=== PATIENT | male | born 1945 | race Caucasian/White ===

== ENCOUNTER 2017-05-21 16:43 | Inpatient (IN) | payer OTHER ==
--- NOTE | 2017-05-21 16:52 | PDOC ---
Rapid Medical Evaluation Time Seen by Provider: 05/21/17 16:44 Medical Evaluation: 05/21/17 16:49 I have performed a brief in-person evaluation of this patient. This patient presents with a chief complaint of: insomnia, tremors and headache. States started namenda x 2 weeks ' and is also taking risperdone. Patient is hard of hearing Pertinent physical exam findings: NAD unlabored breathing lungs clear bilaterally heart s1s2 neuro: hard of hearing but follows simple commands I have ordered the following: labs This patient will proceed to the ED for further evaluation 05/21/17 21:24 Discharge Disposition - Referrals Referrals: STAFF,NOT ON [Primary Care Provider] - - Patient Instructions - Post Discharge Activity
[2017-05-21 17:07] LABS: BASO % 0.5 % (0-2.0); EOS % 3.5 % (0-4.5); MCHC 33.9 g/dl (32.0-35.9); MEAN CELL VOLUME 91.4 fl (80-96); MEAN PLT VOLUME 7.4 fl (7.5-11.1); NEUT % 43.5 % (42.8-82.8); PLATELET COUNT 199 K/MM3 (134-434); RDW 13.5 % (11.9-15.9); WHITE BLOOD COUNT 5.1 K/mm3 (4.0-10.0)
[2017-05-21 17:19] LABS: INR 1.05 (0.82-1.09); PROTHROMBIN TIME (PATIENT) 11.9 SEC (9.98-11.88)
[2017-05-21 17:21] LABS: ACTIVATED PTT 32.5 SECONDS (26.9-34.4)
[2017-05-21 17:45] LABS: ALBUMIN 3.7 g/dl (3.4-5.0); ANION GAP 8 (8-16); CALCIUM 8.4 mg/dL (8.5-10.1); CO2 27 mmol/L (21-32); CREATININE 0.9 mg/dL (0.7-1.3); GLUCOSE,RANDOM 134 mg/dL (74-106); SGOT/AST 20 U/L (15-37); SGPT/ALT 29 U/L (12-78)
[2017-05-21 17:47] LABS: ALK PHOS 62 U/L (45-117); BILIRUBIN,TOTAL 0.5 mg/dL (0.2-1.0); TOT PROT 7.2 g/dl (6.4-8.2)
--- NOTE | 2017-05-21 19:42 | PDOC ---
History of Present Illness - General Chief Complaint: Tremors Stated Complaint: HEAD PAIN/TREMORS/NOT SLEEPING Time Seen by Provider: 05/21/17 16:44 - History of Present Illness Initial Comments: 05/21/17 19:41 CHIEF COMPLAINT: tremor, insomnia HISTORY OF PRESENT ILLNESS: 71 yo M with hx of anxiety, HTN, Parkinson's presents to ED with headache, tremors, and insomnia. Patient's sons are at bedside and state that the patient recently came from [place] and had his medications changed by a new PCP. Patient was previously taking risperidone, memantine, bromazepam, and atenolol, but per sons the doctor discontinued the bromazepam and atenolol. Patient complains of headache "like a swelling" to the back of his head, and sons report that patient is "seeing things that aren' t there." Family reports that other than the visual hallucinations, patient has been acting normally and speaking normally. At baseline patient does not walk "due to knee problems, he uses crutches and has a wheelchair" per family. PAST MEDICAL HISTORY: as per HPI FAMILY HISTORY: Denies SOCIAL HISTORY: Denies tobacco, alcohol, illicit drug use. SURGICAL HISTORY: Denies ALLERGIES: No known drug allergies REVIEW OF SYSTEMS General/Constitutional: Denies fever or chills. Denies weakness. HEENT: Denies ear pain or discharge. Denies sore throat. Cardiovascular: Denies chest pain or shortness of breath. Respiratory: Denies cough, wheezing, or hemoptysis. Gastrointestinal: Denies nausea, vomiting, diarrhea. Genitourinary: Denies dysuria, frequency, or change in urination. Musculoskeletal: Denies joint or muscle swelling or pain. Denies neck or back pain. Skin and breasts: Denies rash or easy bruising. Neurologic: Headache. Denies vertigo, loss of consciousness, or loss of sensation. Psychiatric: Visual hallucinations, no auditory hallucinations. History of anxiety and insomnia. PHYSICAL EXAM General Appearance: Well-appearing, appropriately dressed. No apparent distress. HEENT: EOMI, PERRLA. No conjunctival pallor. No photophobia, scleral icterus. Respiratory/Chest: Lungs CTAB. No shortness of breath, chest tenderness, respiratory distress, accessory muscle use. No crackles, rales, rhonchi, stridor , wheezing, dullness Cardiovascular: RRR. S1, S2. Vascular Pulses: Dorsalis-Pedis (R): 2+, Dorsalis-Pedis (L): 2+ Gastrointestinal/Abdominal: Normal bowel sounds. Abdomen soft, non-distended. No tenderness or rebound tenderness. No organomegaly, pulsatile mass, guarding , hernia, hepatomegaly, splenomegaly. Musculoskeletal/Extremities: Normal inspection. FROM of all extremities, normal capillary refill. Pelvis Stable. No CVA tenderness. No tenderness to extremities, pedal edema, swelling, erythema or deformity. Integumentary: Appropriate color, dry, warm. No cyanosis, erythema, jaundice or rash Neurologic: cuff setter lockstitch II-XII intact. Fully oriented, alert. Appropriate mood/affect. Motor strength 5/5. No appreciable EOM palsy, facial droop or sensory deficit. Past History - Past Medical History Allergies/Adverse Reactions: Allergies Allergy/AdvReac Type Severity Reaction Status Date / Time No Known Allergies Allergy Verified 05/21/17 16:51 Home Medications: Ambulatory Orders Memantine HCl 10 mg PO BID 05/21/17 Risperidone 1 mg PO BID 05/21/17 Cardiac Disorders: Yes (low heart rate) CVA: No COPD: No DVT: No Other medical history: Alzheimers dis - Surgical History Abdominal Surgery: Yes (hernia repair) - Suicide/Smoking/Psychosocial Hx Smoking History: Never smoked Information on smoking cessation initiated: No Hx Alcohol Use: No Drug/Substance Use Hx: No Substance Use Type: None *Physical Exam - Vital Signs Last Vital Signs Temp Pulse Resp BP Pulse Ox 97.4 F L 58 L 18 151/77 95 05/21/17 16:47 05/21/17 16:47 05/21/17 16:47 05/21/17 16:47 05/21/17 16:47 ED Treatment Course - LABORATORY CBC & Chemistry Diagram: 05/21/17 17:00 05/21/17 17:00 - ADDITIONAL ORDERS Additional order review: Laboratory Results 05/21/17 05/21/17 17:00 17:00 PT with INR 11.90 H INR 1.05 PTT (Actin FS) 32.5 Sodium 141 Potassium 3.7 Chloride 106 Carbon Dioxide 27 Anion Gap 8 BUN 11 Creatinine 0.9 Creat Clearance w eGFR > 60 Random Glucose 134 H Calcium 8.4 L Total Bilirubin 0.5 AST 20 ALT 29 Alkaline Phosphatase 62 Total Protein 7.2 Albumin 3.7 05/21/17 17:00 RBC 4.84 MCV 91.4 MCHC 33.9 RDW 13.5 MPV 7.4 L Neutrophils % 43.5 Lymphocytes % 41.3 H Monocytes % 11.2 H Eosinophils % 3.5 Basophils % 0.5 Medical Decision Making - Medical Decision Making 05/21/17 20:08 71 yo M with hx of anxiety, HTN, Parkinson's presents to ED with headache, tremors, and insomnia s/p discontinuation of bromazepam. Discussed case with ER attending Jayjay . Will admit for observation overnight for withdrawal symptoms. -Valium 5 mg -EKG 05/21/17 20:25 Discussed case with attending hospitalist MD Sahu, will order head CT. *DC/Admit/Observation/Transfer Diagnosis at time of Disposition: Benzodiazepine withdrawal Qualifiers: Complication of substance-induced condition: with unspecified complication Qualified Code(s): F13.239 - Sedative, hypnotic or anxiolytic dependence with withdrawal, unspecified - Discharge Dispostion Admit: Yes - Referrals - Patient Instructions - Post Discharge Activity
[2017-05-21] MEDS ORDERED: diazePAM 5 MG TABLET PO ONE (20:09)
[2017-05-21] MEDS ORDERED: diazePAM 5 MG TABLET ONE (20:22)
[2017-05-21] MEDS ORDERED: MEMANTINE HCL 5 MG TABLET (UD) PO ONE (20:26)
[2017-05-21] MEDS ORDERED: risperiDONE 1 MG TABLET (FP) PO ONE (20:26)
[2017-05-21] MEDS ORDERED: risperiDONE 0.5 MG TABLET (FP) ONE (20:33)
--- NOTE | 2017-05-21 22:20 | PDOC ---
*Physical Exam - Vital Signs Last Vital Signs Temp Pulse Resp BP Pulse Ox 97.4 F L 58 L 18 151/77 95 05/21/17 16:47 05/21/17 16:47 05/21/17 16:47 05/21/17 16:47 05/21/17 16:47 ED Treatment Course - LABORATORY CBC & Chemistry Diagram: 05/21/17 17:00 05/21/17 17:00 - ADDITIONAL ORDERS Additional order review: Laboratory Results 05/21/17 05/21/17 17:00 17:00 PT with INR 11.90 H INR 1.05 PTT (Actin FS) 32.5 Sodium 141 Potassium 3.7 Chloride 106 Carbon Dioxide 27 Anion Gap 8 BUN 11 Creatinine 0.9 Creat Clearance w eGFR > 60 Random Glucose 134 H Calcium 8.4 L Total Bilirubin 0.5 AST 20 ALT 29 Alkaline Phosphatase 62 Total Protein 7.2 Albumin 3.7 05/21/17 17:00 RBC 4.84 MCV 91.4 MCHC 33.9 RDW 13.5 MPV 7.4 L Neutrophils % 43.5 Lymphocytes % 41.3 H Monocytes % 11.2 H Eosinophils % 3.5 Basophils % 0.5 - Medications Given in the ED: ED Medications Discontinued Medications Generic Name Dose Route Start Last Admin Trade Name Emanuelq PRN Reason Stop Dose Admin Diazepam 5 mg 05/21/17 20:09 05/21/17 20:32 Valium - PO 05/21/17 20:10 5 mg ONCE ONE Administration Memantine 10 mg 05/21/17 20:26 05/21/17 20:46 Namenda - PO 05/21/17 20:27 10 mg ONCE ONE Administration Risperidone 1 mg 05/21/17 20:26 05/21/17 20:46 Risperdal - PO 05/21/17 20:27 1 mg ONCE ONE Administration Medical Decision Making - Medical Decision Making 05/21/17 22:20 I independently examined and evaluated this patient in conjunction with Rhoda mid-level practitioner. I reviewed the case and agree with the mid-level practitioner's assessment, diagnosis and disposition. *DC/Admit/Observation/Transfer Diagnosis at time of Disposition: Benzodiazepine withdrawal - Referrals - Patient Instructions - Post Discharge Activity
[2017-05-22 03:05] VITALS: BMI 31.5
[2017-05-22 05:56] VITALS: PULSE 56
[2017-05-22] MEDS ORDERED: ACETAMINOPHEN 325 MG TABLET (FP) PO PRN (06:04)
[2017-05-22 06:55] LABS: URINE MARIJUANA THC NEGATIVE ng/ml (CUTOFF=50)
[2017-05-22 09:29] VITALS: BP 142/79; TEMP 97.8
[2017-05-22] MEDS ORDERED: PT OWN MED DRAWER 7, Y5N ONE (09:55)
[2017-05-22] MEDS ORDERED: MEMANTINE HCL 10 MG TABLET (FP) PO SCH (10:00)
[2017-05-22] MEDS ORDERED: risperiDONE 1 MG TABLET (FP) PO SCH (10:00)
[2017-05-22] MEDS ORDERED: PNEUMOC 13-VAL CONJ-DIP CRM/PF 0.5 ML DISP.SYRIN IM ONE (10:00)
--- NOTE | 2017-05-22 10:12 | CONSULT ---
Consult - text type - Consultation Consultation Note: Neurology History of Present Illness CHIEF COMPLAINT: tremor, insomnia HISTORY OF PRESENT ILLNESS: 71 yo M with hx of anxiety, HTN, Parkinson's presents to ED with headache, tremors, and insomnia. Patient's sons were at bedside and stated that the patient recently came from [place] and had his medications changed by a new PCP. Patient was previously taking risperidone, memantine, bromazepam, and atenolol, but per sons the doctor discontinued the bromazepam and atenolol. Patient complains of headache "like a swelling" to the back of his head, and sons report that patient is "seeing things that aren' t there." Family reports that other than the visual hallucinations, patient has been acting normally and speaking normally. In speaking with the patient he is able to tell me that he's in the hospital as well as the date. He is alert and interactive and appears to be at baseline. CT head completed and reviewed and did not show acute changes. PAST MEDICAL HISTORY: as per HPI FAMILY HISTORY: Denies SOCIAL HISTORY: Denies tobacco, alcohol, illicit drug use. SURGICAL HISTORY: Denies ALLERGIES: No known drug allergies REVIEW OF SYSTEMS General/Constitutional: Denies fever or chills. Denies weakness. HEENT: Denies ear pain or discharge. Denies sore throat. Cardiovascular: Denies chest pain or shortness of breath. Respiratory: Denies cough, wheezing, or hemoptysis. Gastrointestinal: Denies nausea, vomiting, diarrhea. Genitourinary: Denies dysuria, frequency, or change in urination. Musculoskeletal: Denies joint or muscle swelling or pain. Denies neck or back pain. Skin and breasts: Denies rash or easy bruising. Neurologic: Headache. Denies vertigo, loss of consciousness, or loss of sensation. Psychiatric: Visual hallucinations, no auditory hallucinations. History of anxiety and insomnia. Past History - Past Medical History Allergies/Adverse Reactions: Allergies Allergy/AdvReac Type Severity Reaction Status Date / Time No Known Allergies Allergy Verified 05/21/17 16:51 Home Medications: Ambulatory Orders Memantine HCl 10 mg PO BID 05/21/17 Risperidone 1 mg PO BID 05/21/17 Cardiac Disorders: Yes (low heart rate) CVA: No COPD: No DVT: No Other medical history: Alzheimers dis - Surgical History Abdominal Surgery: Yes (hernia repair) - Suicide/Smoking/Psychosocial Hx Smoking History: Never smoked Information on smoking cessation initiated: No Hx Alcohol Use: No Drug/Substance Use Hx: No Substance Use Type: None *Physical Exam Vital Signs Temperature 97.8 F 05/22/17 09:28 Pulse Rate 56 L 05/22/17 09:28 Respiratory Rate 18 05/22/17 09:28 Blood Pressure 142/79 05/22/17 09:28 O2 Sat by Pulse Oximetry (%) 96 05/22/17 02:19 PHYSICAL EXAM General Appearance: Well-appearing, appropriately dressed. No apparent distress. HEENT: EOMI, PERRLA. No conjunctival pallor. No photophobia, scleral icterus. Respiratory/Chest: Lungs CTAB. No shortness of breath, chest tenderness, respiratory distress, accessory muscle use. No crackles, rales, rhonchi, stridor , wheezing, dullness Cardiovascular: RRR. S1, S2. Vascular Pulses: Dorsalis-Pedis (R): 2+, Dorsalis-Pedis (L): 2+ Gastrointestinal/Abdominal: Normal bowel sounds. Abdomen soft, non-distended. No tenderness or rebound tenderness. No organomegaly, pulsatile mass, guarding , hernia, hepatomegaly, splenomegaly. Musculoskeletal/Extremities: Normal inspection. FROM of all extremities, normal capillary refill. Pelvis Stable. No CVA tenderness. No tenderness to extremities, pedal edema, swelling, erythema or deformity. Integumentary: Appropriate color, dry, warm. No cyanosis, erythema, jaundice or rash Neurologic: macroeconomics professor II-XII intact. Fully oriented, alert. Appropriate mood/affect. Motor strength 5/5. No appreciable EOM palsy, facial droop or sensory deficit. Laboratory Results 05/21/17 05/21/17 17:00 17:00 PT with INR 11.90 H INR 1.05 PTT (Actin FS) 32.5 Sodium 141 Potassium 3.7 Chloride 106 Carbon Dioxide 27 Anion Gap 8 BUN 11 Creatinine 0.9 Creat Clearance w eGFR > 60 Random Glucose 134 H Calcium 8.4 L Total Bilirubin 0.5 AST 20 ALT 29 Alkaline Phosphatase 62 Total Protein 7.2 Albumin 3.7 05/21/17 17:00 RBC 4.84 MCV 91.4 MCHC 33.9 RDW 13.5 MPV 7.4 L Neutrophils % 43.5 Lymphocytes % 41.3 H Monocytes % 11.2 H Eosinophils % 3.5 Basophils % 0.5 CT head reviewed Medical Decision Making 71 yo M with hx of anxiety, HTN, Parkinson's presents to ED with headache, tremors, and insomnia. Patient's sons were at bedside and stated that the patient recently came from [place] and had his medications changed by a new PCP. Patient was previously taking risperidone, memantine, bromazepam, and atenolol , but per sons the doctor discontinued the bromazepam and atenolol. Patient complains of headache "like a swelling" to the back of his head, and sons report that patient is "seeing things that aren't there." Family reports that other than the visual hallucinations, patient has been acting normally and speaking normally. In speaking with the patient he is able to tell me that he's in the hospital as well as the date. He is alert and interactive and appears to be at baseline. CT head completed and reviewed and did not show acute changes. Consider psych consult for anxiety and for hallucinations Can continue memantine as they find it helpful though does seem to have baseline mental status knowing person, place, time Can give tylenol for tension headache Monitor blood pressure, maintain < 140/90 Can continue atenolol Maintain hydration and adequate PO intake
--- NOTE | 2017-05-22 14:13 | HP ---
Admitting History and Physical - Primary Care Physician PCP: Srinivas Nash - Admission Chief Complaint: BENZODIAZAPINE WITHDRAWEL History of Present Illness: 71 yo M with hx of anxiety, HTN, Parkinson's presents to ED with headache, tremors, and insomnia. Patient's sons are at bedside and state that the patient recently came from [place] and had his medications changed by a new PCP. Patient was previously taking risperidone, memantine, bromazepam, and atenolol , but per sons the doctor discontinued the bromazepam and atenolol. Patient complains of headache "like a swelling" to the back of his head, and sons report that patient is "seeing things that aren't there." Family reports that other than the visual hallucinations, patient has been acting normally and speaking normally. At baseline patient does not walk "due to knee problems, he uses crutches and has a wheelchair" per family. History Source: Medical Record Limitations to Obtaining History: Physical Impairment, Poor Historian - Smoking History Smoking history: Never smoked - Alcohol/Substance Use Hx Alcohol Use: No Home Medications - Allergies Allergies/Adverse Reactions: Allergies Allergy/AdvReac Type Severity Reaction Status Date / Time No Known Allergies Allergy Verified 05/21/17 16:51 - Home Medications Home Medications: Ambulatory Orders Memantine HCl 10 mg PO BID 05/21/17 Risperidone 1 mg PO BID 05/21/17 Review of Systems - Review of Systems Constitutional: reports: Weakness Eyes: reports: No Symptoms HENT: reports: No Symptoms Neck: reports: No Symptoms Cardiovascular: reports: No Symptoms Respiratory: reports: No Symptoms Gastrointestinal: reports: No Symptoms Genitourinary: reports: No Symptoms Musculoskeletal: reports: Muscle Weakness Integumentary: reports: No Symptoms Neurological: reports: Pre-Existing Deficit, Unsteady Gait, Weakness Endocrine: reports: No Symptoms Hematology/Lymphatic: reports: No Symptoms Psychiatric: reports: No Symptoms Physical Examination Vital Signs: Vital Signs Temperature 97.8 F 05/22/17 09:28 Pulse Rate 56 L 05/22/17 09:28 Respiratory Rate 18 05/22/17 09:28 Blood Pressure 142/79 05/22/17 09:28 O2 Sat by Pulse Oximetry (%) 96 05/22/17 02:19 Constitutional: Yes: No Distress Eyes: Yes: WNL HENT: Yes: WNL Neck: Yes: WNL Cardiovascular: Yes: WNL Respiratory: Yes: WNL Gastrointestinal: Yes: WNL Renal/: Yes: WNL Musculoskeletal: Yes: Muscle Weakness Extremities: Yes: WNL Edema: No Peripheral Pulses WNL: Yes Integumentary: Yes: WNL Wound/Incision: Yes: Clean/Dry Neurological: Yes: Pre-Existing Deficit, Unsteady Gait, Weakness ...Motor Strength: LLE, RLE Psychiatric: Yes: Other Labs: CBC, BMP 05/21/17 17:00 05/21/17 17:00 Imaging - Results Cat Scan: Report Reviewed Problem List - Problems (1) Parkinson disease Code(s): G20 - PARKINSON'S DISEASE (2) Benzodiazepine withdrawal Code(s): F13.239 - SEDATV/HYP/ANXIOLYTC DEPENDENCE W WITHDRAWAL, UNSP Qualifiers: Complication of substance-induced condition: with unspecified complication Qualified Code(s): F13.239 - Sedative, hypnotic or anxiolytic dependence with withdrawal, unspecified Assessment/Plan IVF NEUROLOGY EVAL PT EVAL F/U OUTPATINET DC PLANNING
--- NOTE | 2017-05-22 14:17 | DS ---
Physical Examination Vital Signs: Vital Signs Temperature 97.8 F 05/22/17 09:28 Pulse Rate 56 L 05/22/17 09:28 Respiratory Rate 18 05/22/17 09:28 Blood Pressure 142/79 05/22/17 09:28 O2 Sat by Pulse Oximetry (%) 96 05/22/17 02:19 Constitutional: Yes: No Distress Eyes: Yes: WNL HENT: Yes: WNL Neck: Yes: WNL Cardiovascular: Yes: WNL Respiratory: Yes: WNL Gastrointestinal: Yes: WNL Renal/: Yes: WNL Musculoskeletal: Yes: Muscle Weakness Extremities: Yes: WNL Edema: No Peripheral Pulses WNL: Yes Integumentary: Yes: WNL Wound/Incision: Yes: Clean/Dry Neurological: Yes: Pre-Existing Deficit ...Motor Strength: LLE, RLE Psychiatric: Yes: Other Labs: CBC, BMP 05/21/17 17:00 05/21/17 17:00 Discharge Summary Reason For Visit: BENZODIAZEPINE WITHDRAWAL Current Active Problems Benzodiazepine withdrawal (Acute) Parkinson disease (Acute) Procedures: Principal: CT HEAD Hospital Course: ADMITTED FOR OBSERVATION, TREATED WITH IVF, NEUROLOGY WORKUP, CAN F/U OUTPATIENT, WITHDRAWEL SYMPTOMS RESOLVED Condition: Fair - Instructions Diet, Activity, Other Instructions: LOW SODIUM DIET PT AND NEUROLOGY F/U OUTPATIENT SEE PMD IN 1-2 DAYS - Home Medications Comprehensive Discharge Medication List: Ambulatory Orders Memantine HCl 10 mg PO BID 05/21/17 Risperidone 1 mg PO BID 05/21/17 Acetaminophen [Tylenol .Regular Strength -] 650 mg PO Q6H PRN tablet 05/22/17 Memantine HCl [Namenda -] 10 mg PO BID #60 tablet 05/22/17 Risperidone [Risperdal -] 1 mg PO BID #60 tablet 05/22/17
--- NOTE | 2017-05-23 11:20 | EKG ---
Test Reason : Blood Pressure : / mmHG Vent. Rate : 054 BPM Atrial Rate : 054 BPM P-R Int : 158 ms QRS Dur : 096 ms QT Int : 456 ms P-R-T Axes : 032 001 035 degrees QTc Int : 432 ms SINUS BRADYCARDIA WITH PREMATURE ATRIAL COMPLEXES OTHERWISE NORMAL ECG NO PREVIOUS ECGS AVAILABLE Confirmed by EFRAÍN LAKE, SILVER ([id number]) on 05/23/2017 11:20:33 AM Referred By: Confirmed By:SILVER KENNY MD
== END 2017-05-22 15:08 | disposition home or self-care (01) | DRG 776 ==
LOC: JER 16:43 → JERBED 22:27 → J5S 05-22 02:15
PROVIDERS: ADMIT Family Medicine; ATTEND Family Medicine
DX: F13.230 Sedative, hypnotic or anxiolytic dependence with withdrawal, uncomplicated (principal); G20 Parkinson's disease; F41.9 Anxiety disorder, unspecified; I10 Essential (primary) hypertension; G47.00 Insomnia, unspecified
CPT/HCPCS: 36415; 70450-TC; 80053; 80307; 85025; 85610; 85730; 90670; 93005; 93010; 97116-GP; 97161-GP; 99283-25; J2794

== ENCOUNTER 2017-09-14 23:41 | Inpatient (IN) | payer OTHER ==
--- NOTE | 2017-09-15 00:43 | PDOC ---
History of Present Illness - General Chief Complaint: Cold Symptoms Stated Complaint: FEVER Time Seen by Provider: 09/15/17 00:42 - History of Present Illness Initial Comments: 09/15/17 00:42 Mr. Timmy Francisco is a 72 yo male w/ pmh of anxiety, HTN, and Parkinson's who presents for evaluation of an episode of shaking, palpitations, and shortness of breath. Per family who is with him he is usually ambulatory and can walk on his own but has been weak since this began. He had previously been in his normal state of health until this episode started suddenly at 4pm this evening. The patient denies chest pain, headache and dizziness. Denies fever, chills, nausea, vomit, diarrhea and constipation. Denies dysuria, frequency, urgency and hematuria. Allergies: NKDA Past History - Past Medical History Allergies/Adverse Reactions: Allergies Allergy/AdvReac Type Severity Reaction Status Date / Time No Known Allergies Allergy Verified 09/14/17 23:42 Home Medications: Ambulatory Orders Memantine HCl [Namenda -] 10 mg PO BID #60 tablet 05/22/17 Risperidone [Risperdal -] 1 mg PO BID #60 tablet 05/22/17 Cardiac Disorders: Yes (low heart rate) CVA: No COPD: No DVT: No Dementia: Yes HTN: Yes - Surgical History Abdominal Surgery: Yes (hernia repair) - Suicide/Smoking/Psychosocial Hx Smoking History: Never smoked Have you smoked in the past 12 months: No Information on smoking cessation initiated: No Hx Alcohol Use: No Drug/Substance Use Hx: No Substance Use Type: None Review of Systems - Review of Systems Comments:: 09/15/17 00:42 GENERAL/CONSTITUTIONAL: +Generalized weakness. No fever or chills. HEAD, EYES, EARS, NOSE AND THROAT: No change in vision. No ear pain or discharge. No sore throat. CARDIOVASCULAR: +Palpitations since 4pm. No chest pain or shortness of breath RESPIRATORY: +Reported "gasping for air" per family earlier today. No cough, wheezing, or hemoptysis. GASTROINTESTINAL: No nausea, vomiting, diarrhea or constipation. GENITOURINARY: No dysuria, frequency, or change in urination. MUSCULOSKELETAL: No joint or muscle swelling or pain. No neck or back pain. SKIN: No rash NEUROLOGIC: No headache, vertigo, loss of consciousness, or change in strength/ sensation. ENDOCRINE: No increased thirst. No abnormal weight change HEMATOLOGIC/LYMPHATIC: No anemia, easy bleeding, or history of blood clots. ALLERGIC/IMMUNOLOGIC: No hives or skin allergy. *Physical Exam - Vital Signs Last Vital Signs Temp Pulse Resp BP Pulse Ox 116 H 22 118/66 96 09/14/17 23:42 09/14/17 23:42 09/14/17 23:42 09/14/17 23:42 - Physical Exam Comments: 09/15/17 00:43 GENERAL: Awake, alert, and oriented to baseline, in no acute distress HEAD: No signs of trauma, normocephalic, atraumatic EYES: PERRLA, EOMI, sclera anicteric, conjunctiva clear ENT: Auricles normal inspection, hearing grossly normal, nares patent, oropharynx clear without exudates. Moist mucosa NECK: Normal ROM, supple, no lymphadenopathy, JVD, or masses LUNGS: No distress, speaks full sentences, clear to auscultation bilaterally HEART: Regular rate and rhythm, normal S1 and S2, no murmurs, rubs or gallops, peripheral pulses normal and equal bilaterally. ABDOMEN: Soft, nontender, normoactive bowel sounds. No guarding, no rebound. No masses EXTREMITIES: Normal inspection, Normal range of motion, no edema. No clubbing or cyanosis. NEUROLOGICAL: Cranial nerves II through XII grossly intact. Normal speech, normal gait, no focal sensorimotor deficits SKIN: Warm, Dry, normal turgor, no rashes or lesions noted. ED Treatment Course - LABORATORY CBC & Chemistry Diagram: 09/15/17 01:05 09/15/17 01:05 Medical Decision Making - Medical Decision Making 09/15/17 03:51 Mr. Warner is a 72 yo male w/ pmh as described who presents for evaluation of new onset SOB. CBC/CMP/Blood Cx/Urine Cx/UA/EKG/CXR sent for evaluation. 09/15/17 03:55 Patient noted to have Left lower lobe pneumonia on CXR. Treating with azithromycin and ceftriaxone. Admitting for sepsis in the setting of pneumonia. *DC/Admit/Observation/Transfer Diagnosis at time of Disposition: Sepsis Qualifiers: Sepsis type: sepsis due to unspecified organism Qualified Code(s): A41.9 - Sepsis, unspecified organism - Discharge Dispostion Admit: Yes - Referrals Referrals: Marcella Hanna [Primary Care Provider] - - Patient Instructions - Post Discharge Activity
[2017-09-15] MEDS ORDERED: SODIUM CHLORIDE 1,000 ML IV STA (01:10)
[2017-09-15] MEDS ORDERED: ACETAMINOPHEN 1000 MG/100 ML VIAL (NON FORMULARY) IVPB ONE (01:10)
--- NOTE | 2017-09-15 01:16 | PDOC ---
Attending Attestation - Resident Resident Name: Mikie Greene - ED Attending Attestation I have performed the following: I have examined & evaluated the patient, The case was reviewed & discussed with the resident, I agree w/resident's findings & plan, Exceptions are as noted - HPI HPI: 09/15/17 01:14 72 M with h/o dementia, HTN, anxiety presents to ED with fevers, chills, and rigors. Pt's family states that he began to feel feverish at around 4PM. They did not measure a temp but state he felt warm. He subsequently began to rigor and have chills. Pt denies cough, denies N/V/D/abdominal pain. Denies dysuria. Denies flank pain. - Physicial Exam PE: 09/15/17 01:15 "GENERAL: Awake, alert, and fully oriented, in no acute distress. HEAD: No signs of trauma EYES: PERRLA, EOMI, sclera anicteric, conjunctiva clear ENT: Auricles normal inspection, hearing grossly normal, nares patent, oropharynx clear without exudates. Moist mucosa NECK: Nontender, no stepoffs, Normal ROM, supple, no lymphadenopathy, JVD, or masses LUNGS: Breath sounds equal, clear to auscultation bilaterally. No wheezes, and no crackles HEART: Regular rate and rhythm, normal S1 and S2, no murmurs, rubs or gallops ABDOMEN: Soft, nontender, normoactive bowel sounds. No guarding, no rebound. No masses EXTREMITIES: Normal range of motion, no edema. No clubbing or cyanosis. No cords, erythema, or tenderness NEUROLOGICAL: Cranial nerves II through XII intact. 5/5 strength and sensation in all extremities, Normal speech, normal gait, normal cerebellar function SKIN: Warm, Dry, normal turgor, no rashes or lesions noted. " - Medical Decision Making 09/15/17 01:15 72 M with fevers, chills, rigors x 1 day. Vitals notable for fever and tachycardia. Pt with no focal signs of infectious process at this time. - Labs, cultures - CXR, UA - Flu swab - IVF, tylenol 09/15/17 03:57 Labs wnl. Prelim CXR read shows LLL PNA. Pt covered for CAP with ceftriaxone + azithro Will admit to obs
[2017-09-15] MEDS ORDERED: ACETAMINOPHEN INJECTION 100 ML IVPB ONE (01:17)
[2017-09-15 01:19] LABS: HEMATOCRIT 42.8 % (35.4-49); HEMOGLOBIN 14.6 GM/dL (11.7-16.9); MCH 30.5 pg (25.7-33.7); MCHC 34.1 g/dl (32.0-35.9); MEAN CELL VOLUME 89.4 fl (80-96); MEAN PLT VOLUME 7.3 fl (7.5-11.1); PLATELET COUNT 188 K/MM3 (134-434); RBC 4.79 M/mm3 (4.00-5.60); RDW 13.9 % (11.9-15.9); WHITE BLOOD COUNT 5.2 K/mm3 (4.0-10.0)
[2017-09-15 01:56] LABS: ALBUMIN 4.1 g/dl (3.4-5.0); ANION GAP 11 (8-16); BILIRUBIN,TOTAL 0.6 mg/dL (0.2-1.0); BLOOD UREA NITROGEN 12 mg/dL (7-18); CALCIUM 9.2 mg/dL (8.5-10.1); CHLORIDE 102 mmol/L (98-107); CO2 24 mmol/L (21-32); CREATININE 1.1 mg/dL (0.7-1.3); GLUCOSE,RANDOM 145 mg/dL (74-106); POTASSIUM 4.2 mmol/L (3.5-5.1); SGPT/ALT 46 U/L (12-78); SODIUM 137 mmol/L (136-145); TOT PROT 7.8 g/dl (6.4-8.2)
[2017-09-15 01:57] LABS: ALK PHOS 97 U/L (45-117); SGOT/AST 71 U/L (15-37)
[2017-09-15 03:14] LABS: ACANTHOCYTES 0; ANISOCYTOSIS 0; HELMET CELLS 0; HOWELL-JOLLY BODIES 0; MACROCYTOSIS 0; OVALOCYTE 0; PLATELET ESTIMATE NORMAL; ROULEAU 0; SICKELED CELLS 0; TARGET CELLS 0; TEAR DROP CELLS 0; TOXIC GRANULATION 0
[2017-09-15] MEDS ORDERED: CEFTRIAXONE 1,000 MG in DEXTROSE 5%-WATER - 50 ML IVPB ONE (03:46)
[2017-09-15] MEDS ORDERED: AZITHROMYCIN IVPB 500 MG in DEXTROSE 5%-WATER - 250 ML IVPB ONE (03:46)
[2017-09-15] MEDS ORDERED: CEFTRIAXONE 1 GM/50 ML BAG ONE (04:06)
[2017-09-15] MEDS ORDERED: AZITHROMYCIN IVPB 250 ML IVPB ONE (04:34)
--- NOTE | 2017-09-15 05:10 | HP ---
CHIEF COMPLAINT: Fever, Chills PCP: Dr. Marcella Hanna HISTORY OF PRESENT ILLNESS: This is a 72 y/o man with a PMH of Dementia, Parkinson's, Hypertension, Anxiety. Who presents to the ED with fever, chills, rigors x 4pm yesterday. Patient has Dementia, unable to obtain HPI. Patient's daughter was at bedside, sign painter apprentice used. The daughter reports the patient was shaking uncontrollably and he felt hot. The patient denies cough, dizziness, MAYS, SOB, CP, N/V/D, constipation, dysuria. ER course was notable for: (1) Sepsis criteria met: T 103, P 118, R 22 (2) Chest Xray image: KATIE Pneumonia (3) Recent Travel: None PAST MEDICAL HISTORY: See HPI PAST SURGICAL HISTORY: B/L knee replacements (06/2017) Social History: Smoking: Never Alcohol: None Drugs: None Lives with daughter Family History: Non-contributory Allergies No Known Allergies Allergy (Verified 09/14/17 23:42) HOME MEDICATIONS: Home Medications Medication Instructions Recorded Memantine HCl [Namenda -] 10 mg PO BID #60 tablet 05/22/17 Risperidone [Risperdal -] 1 mg PO BID #60 tablet 05/22/17 REVIEW OF SYSTEMS CONSTITUTIONAL: fever, chills, loss of appetite Absent: diaphoresis, generalized weakness, malaise, weight change HEENT: Absent: rhinorrhea, nasal congestion, throat pain, throat swelling, difficulty swallowing, mouth swelling, ear pain, eye pain, visual changes CARDIOVASCULAR: Absent: chest pain, syncope, palpitations, irregular heart rate, lightheadedness , peripheral edema RESPIRATORY: Absent: cough, shortness of breath, dyspnea with exertion, orthopnea, wheezing, stridor, hemoptysis GASTROINTESTINAL: Absent: abdominal pain, abdominal distension, nausea, vomiting, diarrhea, constipation, melena, hematochezia GENITOURINARY: Absent: dysuria, frequency, urgency, hesitancy, hematuria, flank pain, genital pain MUSCULOSKELETAL: Absent: myalgia, arthralgia, joint swelling, back pain, neck pain SKIN: Absent: rash, itching, pallor HEMATOLOGIC/IMMUNOLOGIC: Absent: easy bleeding, easy bruising, lymphadenopathy, frequent infections ENDOCRINE: Absent: unexplained weight gain, unexplained weight loss, heat intolerance, cold intolerance NEUROLOGIC: Absent: headache, focal weakness or paresthesias, dizziness, unsteady gait, seizure, mental status changes, bladder or bowel incontinence PSYCHIATRIC: Absent: anxiety, depression, suicidal or homicidal ideation, hallucinations. PHYSICAL EXAMINATION Vital Signs - 24 hr 09/14/17 09/15/17 23:42 01:23 Temperature 103.0 F H Pulse Rate 116 H Respiratory 22 Rate Blood Pressure 118/66 O2 Sat by Pulse 96 Oximetry (%) GENERAL: Awake- at baseline, in no acute distress. HEAD: Normal with no signs of trauma. EYES: Pupils equal, round and reactive to light, extraocular movements intact, sclera anicteric, conjunctiva clear. No lid lag. EARS, NOSE, THROAT: Ears normal, nares patent, oropharynx clear without exudates. Dry mucous membranes. NECK: Normal range of motion, supple without lymphadenopathy, JVD, or masses. LUNGS: Breath sounds diminished to L-base. No wheezes, and no crackles. No accessory muscle use. HEART: Regular rate and rhythm, normal S1 and S2 without murmur, rub or gallop. ABDOMEN: Soft, nontender, not distended, normoactive bowel sounds, no guarding, no rebound, no masses. No hepatomegaly or splenomegaly. MUSCULOSKELETAL: Normal range of motion at all joints. No bony deformities or tenderness. No CVA tenderness. UPPER EXTREMITIES: 2+ pulses, warm, well-perfused. No cyanosis. No clubbing. No peripheral edema. LOWER EXTREMITIES: 2+ pulses, warm, well-perfused. No calf tenderness. No peripheral edema. NEUROLOGICAL: Cranial nerves II-XII intact. Slowed speech. Gait not observed. PSYCHIATRIC: Cooperative. Good eye contact. Appropriate mood and affect. SKIN: Warm, dry, normal turgor, no rashes or lesions noted, normal capillary refill. Laboratory Results - last 24 hr 09/15/17 09/15/17 09/15/17 01:05 01:05 01:05 WBC 5.2 RBC 4.79 Hgb 14.6 Hct 42.8 MCV 89.4 MCH 30.5 MCHC 34.1 RDW 13.9 Plt Count 188 MPV 7.3 L Neutrophils % No Result Required. Neutrophils % (Manual) 68.7 Band Neutrophils % 4.0 Lymphocytes % No Result Required. Lymphocytes % (Manual) 10.1 Monocytes % (Manual) 10 Eosinophils % (Manual) 0.0 Basophils % (Manual) 1.0 Myelocytes % (Man) 0 Promyelocytes % (Man) 0 Blast Cells % (Manual) 0 Nucleated RBC % 0 Metamyelocytes 0 Hypochromia 0 Toxic Granulation 0 Dohle Bodies 0 Platelet Estimate Normal Polychromasia 0 Poikilocytosis 0 Basophilic Stippling 0 Anisocytosis 0 Microcytosis 0 Macrocytosis 0 Spherocytes 0 Sickle Cells 0 Target Cells 0 Tear Drop Cells 0 Ovalocytes 0 Stomatocytes 0 Helmet Cells 0 [place] Bodies 0 [place] Rings 0 [place] Cells 0 Acanthocytes (Spur) 0 Rouleaux 0 Fragmented RBCs 0 Schistocytes 0 D-Dimer 1962 H Sodium 137 Potassium 4.2 Chloride 102 Carbon Dioxide 24 Anion Gap 11 BUN 12 Creatinine 1.1 D Creat Clearance w eGFR > 60 Random Glucose 145 H Lactic Acid Calcium 9.2 Total Bilirubin 0.6 AST 71 H D ALT 46 D Alkaline Phosphatase 97 D Creatine Kinase Troponin I Total Protein 7.8 Albumin 4.1 09/15/17 09/15/17 01:05 04:30 WBC RBC Hgb Hct MCV MCH MCHC RDW Plt Count MPV Neutrophils % Neutrophils % (Manual) Band Neutrophils % Lymphocytes % Lymphocytes % (Manual) Monocytes % (Manual) Eosinophils % (Manual) Basophils % (Manual) Myelocytes % (Man) Promyelocytes % (Man) Blast Cells % (Manual) Nucleated RBC % Metamyelocytes Hypochromia Toxic Granulation Dohle Bodies Platelet Estimate Polychromasia Poikilocytosis Basophilic Stippling Anisocytosis Microcytosis Macrocytosis Spherocytes Sickle Cells Target Cells Tear Drop Cells Ovalocytes Stomatocytes Helmet Cells [place] Bodies [place] Rings Selina Cells Acanthocytes (Spur) Rouleaux Fragmented RBCs Schistocytes D-Dimer Sodium Potassium Chloride Carbon Dioxide Anion Gap BUN Creatinine Creat Clearance w eGFR Random Glucose Lactic Acid 1.6 Calcium Total Bilirubin AST ALT Alkaline Phosphatase Creatine Kinase 43 Troponin I < 0.02 Total Protein Albumin ASSESSMENT/PLAN: This is a 72 y/o man with a PMHx of: Dementia, Parkinson's, HTN, Anxiety. Placed in Observation for Sepsis secondary to Community Acquired Pneumonia. Plan: 1. Sepsis- Likely secondary to CAP, CURB65 Score 1, Chest Xray image- KATIE Infiltrate, report pending, Blood Cultures-pending, Urine Legionella, no Leukocytosis, no Neutrophilia, LA-wnl, Monitor CBC, Monitor vitals. Azithromycin , Ceftriaxone given in ED, will continue, Appreciate ID consult 2. Pneumonia- see above 3. Elevated D- dimer- Likely secondary to Sepsis vs Wells Score 1.5, PE less likely, P 118-72 post fluid bolus, Tylenol, would consider CTA if P remains 100s , or complaint SOB. currently patient denies SOB, P 72. 4. Hypertension- stable, continue home med, maintain MAP> 60, monitor BP 5. Parkinson's- continue home meds, fall precautions 6. Psych: Dementia, Anxiety- continue home meds, fall precautions 7. FEN- replete lytes prn, Low Na Diet 7. DVT ppx- SCDs, Consider ACs if LOS > 48 hrs Code Status: Full Code, HCP- Leila Vasquez (daughter) Problem List - Problem (1) Sepsis Code(s): A41.9 - SEPSIS, UNSPECIFIED ORGANISM Qualifiers: Sepsis type: sepsis due to unspecified organism Qualified Code(s): A41.9 - Sepsis, unspecified organism (2) Dementia Code(s): F03.90 - UNSPECIFIED DEMENTIA WITHOUT BEHAVIORAL DISTURBANCE (3) Parkinson disease Code(s): G20 - PARKINSON'S DISEASE (4) DVT prophylaxis Code(s): [id number] - Visit type - Emergency Visit Emergency Visit: Yes ED Registration Date: 09/15/17 Care time: The patient presented to the Emergency Department on the above date and was hospitalized for further evaluation of their emergent condition. - New Patient This patient is new to me today: Yes Date on this admission: 09/15/17 - Critical Care Critical Care patient: No Hospitalist Screening - Colonoscopy Questionnaire Colonoscopy Questionnaire: Colonoscopy Questionnaire - Patient: 50 - 75 years old and never had a screening colonoscopy: Unknown History of colon or rectal polyps, or CA: Unknown History of IBD, Crohn's disease or UC: Unknown History of abdominal radiation therapy as a child: Unknown - Relative: 1 with colon or rectal CA, or polyps at age 60 or younger: Unknown Colon or rectal CA diagnosed at age 45 or younger: Unknown Multiple relatives with colon or rectal CA: Unknown - Outcome: Screening Result: Negative Screen
[2017-09-15] MEDS ORDERED: ACETAMINOPHEN 325 MG TABLET (FP) PO PRN (05:25)
[2017-09-15 05:58] LABS: URINE APPEARANCE CLEAR; URINE BILIRUBIN NEGATIVE (<2.0 mg/dL); URINE BLOOD NEGATIVE (NEGATIVE); URINE COLOR DKYELLOW; URINE GLUCOSE (UA) NEGATIVE (NEGATIVE); URINE KETONE NEGATIVE (NEGATIVE); URINE LEUK ESTERASE NEGATIVE (NEGATIVE); URINE NITRITE NEGATIVE (NEGATIVE); URINE PROTEIN NEGATIVE (NEGATIVE); URINE UROBILINOGEN NEGATIVE mg/dL (0.2-1.0)
[2017-09-15] MEDS ORDERED: ACETAMINOPHEN 325 MG TABLET (FP) ONE (06:27)
[2017-09-15 08:15] VITALS: BMI 32.0
[2017-09-15] MEDS: HEPARIN NA (PORCINE) 5,000 UNITS/ML 1ML VIAL SQ SCH ×2 (10:54→21:18)
[2017-09-15] MEDS: MEMANTINE HCL 10 MG TABLET (FP) PO SCH ×2 (10:54→21:18)
[2017-09-15] MEDS: risperiDONE 1 MG TABLET (FP) PO SCH ×2 (10:54→21:18)
--- NOTE | 2017-09-15 13:42 | PN ---
Progress Note, Physician - Current Medication List Current Medications: Active Medications Acetaminophen (Tylenol -) 650 mg PO Q6H PRN PRN Reason: PAIN OR FEVER Heparin Sodium (Porcine) (Heparin -) 5,000 unit SQ BID [facility] Last Admin: 09/15/17 10:54 Dose: 5,000 unit Azithromycin 500 mg/ Dextrose 250 mls @ 250 mls/hr IVPB DAILY [facility] Ceftriaxone Sodium 1 gm/ (Dextrose) 50 mls @ 100 mls/hr IVPB DAILY [facility] Memantine (Namenda -) 10 mg PO BID [facility] Last Admin: 09/15/17 10:54 Dose: 10 mg Risperidone (Risperdal -) 1 mg PO BID [facility] Last Admin: 09/15/17 10:54 Dose: 1 mg - Objective Vital Signs: Vital Signs Temperature 99.3 F 09/15/17 10:00 Pulse Rate 73 09/15/17 08:03 Respiratory Rate 20 09/15/17 08:03 Blood Pressure 115/63 09/15/17 08:03 O2 Sat by Pulse Oximetry (%) 95 09/15/17 08:03 Labs: CBC, BMP 09/15/17 01:05 09/15/17 01:05 Problem List - Problems (1) Sepsis Assessment/Plan: - Likely secondary to CAP, CURB65 Score 1, Chest Xray image- KATIE Infiltrate, report pending, Blood Cultures-pending, Urine Legionella, no Leukocytosis, no Neutrophilia, LA-wnl, Monitor CBC, Monitor vitals. Azithromycin, Ceftriaxone will continue, -Appreciate ID consult Code(s): A41.9 - SEPSIS, UNSPECIFIED ORGANISM Qualifiers: Sepsis type: sepsis due to unspecified organism Qualified Code(s): A41.9 - Sepsis, unspecified organism (2) Pneumonia Assessment/Plan: as above Code(s): J18.9 - PNEUMONIA, UNSPECIFIED ORGANISM (3) Dementia Assessment/Plan: 6. Psych: Dementia, Anxiety- continue home meds, fall precautions 7. FEN- replete lytes prn, Low Na Diet 7. DVT ppx- SCDs, Consider ACs if LOS > 48 hrs Code Status: Full Code, HCP- Leila Vasquez (daughter) Code(s): F03.90 - UNSPECIFIED DEMENTIA WITHOUT BEHAVIORAL DISTURBANCE (4) Parkinson disease Assessment/Plan: - continue home meds, fall precautions Code(s): G20 - PARKINSON'S DISEASE (5) Elevated d-dimer Assessment/Plan: - Likely secondary to Sepsis vs Wells Score 1.5, PE less likely, P 118-72 post fluid bolus, Tylenol, would consider CTA if P remains 100s, or complaint SOB. currently patient denies SOB, P 72. -Pulm Consult Code(s): R79.89 - OTHER SPECIFIED ABNORMAL FINDINGS OF BLOOD CHEMISTRY
--- NOTE | 2017-09-15 14:33 | CON.PULM ---
Consult Consult Specialty:: PULM/CCM Referred by:: GURJIT Reason for Consultation:: elevated D-dimer - History of Present Illness Chief Complaint: fever History of Present Illness: 72 M, anxiety, HTN, dementia, and Parkinson's. Admitted via the ER due to chills, shaking, and shortness of breath. Per the record, the family reports ta he has been weak and up until a day or 2 ago. No apparent travel history. No reported sick contacts. No reported hemoptysis. CXR: LLL infiltrate/atelectasis - History Source History Provided By: Medical Record Limitations to Obtaining History: Dementia - Alcohol/Substance Use Hx Alcohol Use: No - Smoking History Smoking history: Never smoked Have you smoked in the past 12 months: No Home Medications - Allergies Allergies/Adverse Reactions: Allergies Allergy/AdvReac Type Severity Reaction Status Date / Time No Known Allergies Allergy Verified 09/14/17 23:42 - Home Medications Home Medications: Ambulatory Orders Memantine HCl [Namenda -] 10 mg PO BID #60 tablet 05/22/17 Risperidone [Risperdal -] 1 mg PO BID #60 tablet 05/22/17 Review of Systems Unable to obtain ROS, reason: not able to provide Physical Exam Vital Sings: Vital Signs Temperature 99.3 F 09/15/17 10:00 Pulse Rate 73 09/15/17 08:03 Respiratory Rate 20 09/15/17 08:03 Blood Pressure 115/63 09/15/17 08:03 O2 Sat by Pulse Oximetry (%) 95 09/15/17 08:03 Constitutional: Yes: No Distress, Calm Eyes: Yes: Conjunctiva Clear, EOM Intact HENT: Yes: Atraumatic, Normocephalic, Other Neck: Yes: Supple Cardiovascular: Yes: Regular Rate and Rhythm Respiratory: Yes: Cough, Diminished, Rhonchi. No: Accessory Muscle Use, On Nasal O2, Rales, SOB, SOB on Exertion, Stridor, Tachypnea, Wheezes ...Inspection: Yes: WNL ...Clubbing: No Gastrointestinal: Yes: Normal Bowel Sounds, Soft Renal/: Yes: WNL Breast(s): Yes: WNL Musculoskeletal: Yes: WNL Edema: No Peripheral Pulses WNL: Yes Integumentary: Yes: WNL Neurological: Yes: Confusion ...Motor Strength: WNL Psychiatric: Yes: Alert Labs: CBC, BMP 09/15/17 01:05 09/15/17 01:05 Imaging - Results Chest X-ray: Report Reviewed, Image Reviewed Problem List - Problems (1) Dementia Code(s): F03.90 - UNSPECIFIED DEMENTIA WITHOUT BEHAVIORAL DISTURBANCE (2) Elevated d-dimer Code(s): R79.89 - OTHER SPECIFIED ABNORMAL FINDINGS OF BLOOD CHEMISTRY (3) Pneumonia Code(s): J18.9 - PNEUMONIA, UNSPECIFIED ORGANISM (4) Sepsis Code(s): A41.9 - SEPSIS, UNSPECIFIED ORGANISM Qualifiers: Sepsis type: sepsis due to unspecified organism Qualified Code(s): A41.9 - Sepsis, unspecified organism (5) Parkinson disease Code(s): G20 - PARKINSON'S DISEASE Assessment/Plan Elevated D-Dimer due to Sepsis due to LLL CAP Wells score 1, Diagnosis of VTE highly unlikely. Patient is not tachycardic, he is comfortable on RA and not hypoxic. Will not pursue further workup. Follow cultures Agree with ABX coverage VTE prophylaxis Will follow Dr Dillard
--- NOTE | 2017-09-15 15:12 | PN ---
Progress Note (short form) - Note Progress Note: ID consult dictated imp/reccd CAP- LLL infiltrate influenza screen negative cultures sent send legionella antigen continue gradyepbert/ama Problem List - Problems (1) Pneumonia Code(s): J18.9 - PNEUMONIA, UNSPECIFIED ORGANISM
--- NOTE | 2017-09-15 16:30 | CONS ---
INFECTIOUS DISEASE CONSULTATION DATE OF CONSULTATION: 09/15/2017 This is a 72-year-old man. He lives in the community. He had sudden onset of chills, shortness of breath. He reports cough as well that started at 4 p.m. yesterday. After that, he began feeling very weak and unable to walk on his own. The family brought him to the emergency room. There is no chest pain, headache, or dizziness. He had no vomiting. There has been no diarrhea or dysuria. ALLERGIES: He has no known drug allergies. PAST MEDICAL HISTORY: Notable for mild dementia, anxiety, hypertension, and Parkinson disease. SURGICAL HISTORY: Notable for hernia repair. He has had bilateral knee replacement. MEDICATIONS AT HOME: Include Namenda and Risperdal. FAMILY HISTORY: Noncontributory. SOCIAL HISTORY: There is no history of any cigarette or substance use. He lives in the community. He lives with his daughter. REVIEW OF SYSTEMS: As per HPI. There has been no sore throat. He has just started having some cough, and there is no diarrhea or dysuria. PHYSICAL EXAMINATION: Vital Signs: Current temperature is 100.3. T-max was 103 on arrival in the emergency room, with a pulse of 116, blood pressure 118/66, respiratory rate is 22, saturating 96% on room air. HEENT: He is normocephalic. His eyes are anicteric. He has no thrush or pharyngitis. Neck: Supple. There are no meningeal signs. Lungs: There are a few crackles, diminished breath sounds at the left base. Heart: Regular rate and rhythm. Abdomen: Soft, nontender. He has no CVA or suprapubic tenderness. Extremities: Without edema. DIAGNOSTIC DATA: White count is 5.2, hemoglobin 14.2, platelets are 188. His BUN is 12 and creatinine 1.1 with an AST of 71, CK of 43. Lactic acid was 1.3. Urinalysis is negative. Influenza screen was done and is negative. Chest x-ray reveals a left lower lobe infiltrate. In summary, this is a 72-year-old man admitted with sudden onset of fever, chills, weakness, accompanied by cough yesterday evening consistent with community-acquired pneumonia. Given his comorbidities of dementia and Parkinson disease, he was admitted for further evaluation. Would suggest we continue him on ceftriaxone and Rocephin. Would obtain legionella and pneumococcal urinary antigen. This could very well be pneumococcal disease given the sudden onset of symptoms. Further recommendations to follow based on his clinical course. JORGE PICHARDO M.D. [id number]
[2017-09-16 08:29] LABS: CHLORIDE 109 mmol/L (98-107); POTASSIUM 3.5 mmol/L (3.5-5.1); SODIUM 141 mmol/L (136-145)
[2017-09-16 08:35] LABS: HEMATOCRIT 38.2 % (35.4-49); HEMOGLOBIN 13.1 GM/dL (11.7-16.9); MCH 30.8 pg (25.7-33.7); MCHC 34.3 g/dl (32.0-35.9); MEAN CELL VOLUME 89.6 fl (80-96); MEAN PLT VOLUME 7.6 fl (7.5-11.1); PLATELET COUNT 136 K/MM3 (134-434); RBC 4.27 M/mm3 (4.00-5.60); RDW 14.3 % (11.9-15.9); WHITE BLOOD COUNT 3.3 K/mm3 (4.0-10.0)
[2017-09-16 08:54] LABS: ALBUMIN 3.1 g/dl (3.4-5.0); ALK PHOS 70 U/L (45-117); ANION GAP 5 (8-16); BILIRUBIN,TOTAL 0.2 mg/dL (0.2-1.0); BLOOD UREA NITROGEN 9 mg/dL (7-18); CO2 27 mmol/L (21-32); CREATININE 0.8 mg/dL (0.7-1.3); GLUCOSE,RANDOM 92 mg/dL (74-106); SGOT/AST 55 U/L (15-37); SGPT/ALT 43 U/L (12-78); TOT PROT 6.3 g/dl (6.4-8.2)
[2017-09-16] MEDS ORDERED: cefTRIAXone SODIUM 1 GM VIAL ONE (10:00)
[2017-09-16] MEDS ORDERED: DEXTROSE 5%-WATER - 50 ML IVPB ONE (10:00)
[2017-09-16] MEDS: risperiDONE 1 MG TABLET (FP) PO SCH ×2 (10:02→21:14)
[2017-09-16] MEDS: MEMANTINE HCL 10 MG TABLET (FP) PO SCH ×2 (10:02→21:14)
[2017-09-16] MEDS: HEPARIN NA (PORCINE) 5,000 UNITS/ML 1ML VIAL SQ SCH ×2 (10:04→21:14)
[2017-09-16] MEDS: CEFTRIAXONE 1 GM in DEXTROSE 5%-WATER - 50 ML IVPB SCH (10:04)
[2017-09-16] MEDS: AZITHROMYCIN IVPB 500 MG in DEXTROSE 5%-WATER - 250 ML IVPB SCH (10:55)
[2017-09-16 11:59] LABS: PLATELET ESTIMATE ADEQUATE
--- NOTE | 2017-09-16 12:34 | PN ---
Progress Note (short form) - Note Progress Note: Resting in NAD on RA. Family at the bedside to translate. Reports he says that he feels better. Intake & Output 09/13/17 09/14/17 09/15/17 09/16/17 23:59 23:59 23:59 23:59 Intake Total 1200 400 Output Total 950 Balance 1200 -550 Weight 175 lb 163 lb 14.4 oz Last Vital Signs Temp Pulse Resp BP Pulse Ox 98.8 F 68 20 149/69 97 09/16/17 10:00 09/16/17 08:57 09/16/17 08:57 09/16/17 08:57 09/15/17 20:37 Active Medications Acetaminophen (Tylenol -) 650 mg PO Q6H PRN PRN Reason: PAIN OR FEVER Last Admin: 09/15/17 18:58 Dose: 650 mg Heparin Sodium (Porcine) (Heparin -) 5,000 unit SQ BID [facility] Last Admin: 09/16/17 10:04 Dose: 5,000 unit Azithromycin 500 mg/ Dextrose 250 mls @ 250 mls/hr IVPB DAILY [facility] Last Admin: 09/16/17 10:55 Dose: 250 mls/hr Ceftriaxone Sodium 1 gm/ (Dextrose) 50 mls @ 100 mls/hr IVPB DAILY [facility] Last Admin: 09/16/17 10:04 Dose: 100 mls/hr Memantine (Namenda -) 10 mg PO BID [facility] Last Admin: 09/16/17 10:02 Dose: 10 mg Risperidone (Risperdal -) 1 mg PO BID [facility] Last Admin: 09/16/17 10:02 Dose: 1 mg Constitutional: Yes: No Distress, Calm Eyes: Yes: Conjunctiva Clear, EOM Intact HENT: Yes: Atraumatic, Normocephalic, Other Neck: Yes: Supple Cardiovascular: Yes: Regular Rate and Rhythm Respiratory: Yes: Cough, Diminished, Rhonchi. No: Accessory Muscle Use, On Nasal O2, Rales, SOB, SOB on Exertion, Stridor, Tachypnea, Wheezes ...Inspection: Yes: WNL ...Clubbing: No Gastrointestinal: Yes: Normal Bowel Sounds, Soft Renal/: Yes: WNL Breast(s): Yes: WNL Musculoskeletal: Yes: WNL Edema: No Peripheral Pulses WNL: Yes Integumentary: Yes: WNL Neurological: Yes: Confusion ...Motor Strength: WNL Psychiatric: Yes: Alert Labs: Laboratory Results - last 24 hr 09/16/17 09/16/17 06:35 06:35 WBC 3.3 L D RBC 4.27 Hgb 13.1 D Hct 38.2 MCV 89.6 MCH 30.8 MCHC 34.3 RDW 14.3 Plt Count 136 D MPV 7.6 Total Counted 98 Neutrophils % No Result Required. Neutrophils % (Manual) 34.7 L D Band Neutrophils % 1.0 Lymphocytes % No Result Required. Lymphocytes % (Manual) 25.5 D Monocytes % (Manual) 30 H* D Eosinophils % (Manual) 0.0 Basophils % (Manual) 0.0 Myelocytes % (Man) 0 Promyelocytes % (Man) 0 Blast Cells % (Manual) 0 Nucleated RBC % 0 Metamyelocytes 0 Platelet Estimate Adequate Sodium 141 Potassium 3.5 Chloride 109 H Carbon Dioxide 27 Anion Gap 5 L BUN 9 D Creatinine 0.8 D Creat Clearance w eGFR > 60 Random Glucose 92 D Calcium 8.0 L Total Bilirubin 0.2 D AST 55 H D ALT 43 Alkaline Phosphatase 70 D Total Protein 6.3 L Albumin 3.1 L D Problem List - Problems (1) Dementia Code(s): F03.90 - UNSPECIFIED DEMENTIA WITHOUT BEHAVIORAL DISTURBANCE (2) Elevated d-dimer Code(s): R79.89 - OTHER SPECIFIED ABNORMAL FINDINGS OF BLOOD CHEMISTRY (3) Pneumonia Code(s): J18.9 - PNEUMONIA, UNSPECIFIED ORGANISM (4) Sepsis Code(s): A41.9 - SEPSIS, UNSPECIFIED ORGANISM Qualifiers: Sepsis type: sepsis due to unspecified organism Qualified Code(s): A41.9 - Sepsis, unspecified organism (5) Parkinson disease Code(s): G20 - PARKINSON'S DISEASE Assessment/Plan Elevated D-Dimer due to Sepsis due to LLL CAP Wells score 1, Diagnosis of VTE highly unlikely. Patient is not tachycardic, he is comfortable on RA and not hypoxic. Will not pursue further workup. Follow cultures Agree with ABX coverage VTE prophylaxis Dr Dillard Problem List - Problems (1) Dementia Code(s): F03.90 - UNSPECIFIED DEMENTIA WITHOUT BEHAVIORAL DISTURBANCE (2) Elevated d-dimer Code(s): R79.89 - OTHER SPECIFIED ABNORMAL FINDINGS OF BLOOD CHEMISTRY (3) Pneumonia Code(s): J18.9 - PNEUMONIA, UNSPECIFIED ORGANISM (4) Sepsis Code(s): A41.9 - SEPSIS, UNSPECIFIED ORGANISM Qualifiers: Sepsis type: sepsis due to unspecified organism Qualified Code(s): A41.9 - Sepsis, unspecified organism (5) Parkinson disease Code(s): G20 - PARKINSON'S DISEASE
--- NOTE | 2017-09-16 13:33 | PN ---
Progress Note, Physician - Current Medication List Current Medications: Active Medications Acetaminophen (Tylenol -) 650 mg PO Q6H PRN PRN Reason: PAIN OR FEVER Last Admin: 09/15/17 18:58 Dose: 650 mg Heparin Sodium (Porcine) (Heparin -) 5,000 unit SQ BID [facility] Last Admin: 09/16/17 10:04 Dose: 5,000 unit Azithromycin 500 mg/ Dextrose 250 mls @ 250 mls/hr IVPB DAILY [facility] Last Admin: 09/16/17 10:55 Dose: 250 mls/hr Ceftriaxone Sodium 1 gm/ (Dextrose) 50 mls @ 100 mls/hr IVPB DAILY [facility] Last Admin: 09/16/17 10:04 Dose: 100 mls/hr Memantine (Namenda -) 10 mg PO BID [facility] Last Admin: 09/16/17 10:02 Dose: 10 mg Risperidone (Risperdal -) 1 mg PO BID [facility] Last Admin: 09/16/17 10:02 Dose: 1 mg - Objective Vital Signs: Vital Signs Temperature 98.8 F 09/16/17 10:00 Pulse Rate 68 09/16/17 08:57 Respiratory Rate 20 09/16/17 08:57 Blood Pressure 149/69 09/16/17 08:57 O2 Sat by Pulse Oximetry (%) 97 09/15/17 20:37 Cardiovascular: Yes: S1, S2 Respiratory: Yes: Rhonchi Gastrointestinal: Yes: Normal Bowel Sounds, Soft Labs: CBC, BMP 09/16/17 06:35 09/16/17 06:35 Problem List - Problems (1) Sepsis Assessment/Plan: - Likely secondary to CAP, CURB65 Score 1, Chest Xray image- KATIE Infiltrate, report pending, Blood Cultures-pending, Urine Legionella, no Leukocytosis, no Neutrophilia, LA-wnl, Monitor CBC, Monitor vitals. Azithromycin, Ceftriaxone will continue, -Appreciate ID consult Code(s): A41.9 - SEPSIS, UNSPECIFIED ORGANISM Qualifiers: Sepsis type: sepsis due to unspecified organism Qualified Code(s): A41.9 - Sepsis, unspecified organism (2) Pneumonia Assessment/Plan: as above Code(s): J18.9 - PNEUMONIA, UNSPECIFIED ORGANISM (3) Dementia Assessment/Plan: 6. Psych: Dementia, Anxiety- continue home meds, fall precautions 7. FEN- replete lytes prn, Low Na Diet 7. DVT ppx- SCDs, Consider ACs if LOS > 48 hrs Code Status: Full Code, HCP- Leila TimmySabina (daughter) Code(s): F03.90 - UNSPECIFIED DEMENTIA WITHOUT BEHAVIORAL DISTURBANCE (4) Parkinson disease Assessment/Plan: - continue home meds, fall precautions Code(s): G20 - PARKINSON'S DISEASE (5) Elevated d-dimer Assessment/Plan: - Likely secondary to Sepsis vs Wells Score 1.5, PE less likely, P 118-72 post fluid bolus, Tylenol, would consider CTA if P remains 100s, or complaint SOB. currently patient denies SOB, P 72. -Pulm Consult noted--no work up Code(s): R79.89 - OTHER SPECIFIED ABNORMAL FINDINGS OF BLOOD CHEMISTRY
[2017-09-16] MEDS: ALBUTEROL SO4 2.5/IPRATROPIUM 0.5 INH SOL 3 ML VIAL.NEB. NEB SCH ×2 (16:15→20:30)
[2017-09-17] MEDS: ALBUTEROL SO4 2.5/IPRATROPIUM 0.5 INH SOL 3 ML VIAL.NEB. NEB SCH ×4 (07:25→20:13)
[2017-09-17 07:46] LABS: HEMOGLOBIN 14.3 GM/dL (11.7-16.9); MCH 30.6 pg (25.7-33.7); MCHC 34.1 g/dl (32.0-35.9); MEAN CELL VOLUME 89.7 fl (80-96); MEAN PLT VOLUME 7.6 fl (7.5-11.1); PLATELET COUNT 142 K/MM3 (134-434); RBC 4.69 M/mm3 (4.00-5.60); RDW 14.2 % (11.9-15.9); WHITE BLOOD COUNT 3.1 K/mm3 (4.0-10.0)
[2017-09-17 08:14] LABS: ALBUMIN 3.4 g/dl (3.4-5.0); ANION GAP 10 (8-16); BLOOD UREA NITROGEN 8 mg/dL (7-18); CALCIUM 8.7 mg/dL (8.5-10.1); CHLORIDE 106 mmol/L (98-107); CO2 26 mmol/L (21-32); GLUCOSE,RANDOM 89 mg/dL (74-106); SGOT/AST 51 U/L (15-37); SGPT/ALT 40 U/L (12-78); SODIUM 142 mmol/L (136-145)
[2017-09-17 08:16] LABS: ALK PHOS 68 U/L (45-117); BILIRUBIN,TOTAL 0.3 mg/dL (0.2-1.0); CREATININE 0.8 mg/dL (0.7-1.3); TOT PROT 6.9 g/dl (6.4-8.2)
[2017-09-17] MEDS ORDERED: cefTRIAXone SODIUM 1 GM VIAL ONE (10:01)
[2017-09-17] MEDS ORDERED: DEXTROSE 5%-WATER - 50 ML IVPB ONE (10:02)
[2017-09-17] MEDS: CEFTRIAXONE 1 GM in DEXTROSE 5%-WATER - 50 ML IVPB SCH (10:03)
[2017-09-17] MEDS: risperiDONE 1 MG TABLET (FP) PO SCH ×2 (10:04→21:16)
[2017-09-17] MEDS: HEPARIN NA (PORCINE) 5,000 UNITS/ML 1ML VIAL SQ SCH ×2 (10:04→21:16)
[2017-09-17] MEDS: MEMANTINE HCL 10 MG TABLET (FP) PO SCH ×2 (10:04→21:16)
[2017-09-17 10:57] LABS: PLATELET ESTIMATE DECREASED
[2017-09-17] MEDS ORDERED: PT OWN MED DRAWER 7, Y5N ONE ×2 (11:29→21:11)
[2017-09-17] MEDS: AZITHROMYCIN IVPB 500 MG in DEXTROSE 5%-WATER - 250 ML IVPB SCH (11:32)
--- NOTE | 2017-09-17 12:52 | EKG ---
Test Reason : Blood Pressure : / mmHG Vent. Rate : 103 BPM Atrial Rate : 103 BPM P-R Int : 130 ms QRS Dur : 096 ms QT Int : 340 ms P-R-T Axes : 049 -25 033 degrees QTc Int : 445 ms SINUS TACHYCARDIA WITH PREMATURE ATRIAL COMPLEXES OTHERWISE NORMAL ECG WHEN COMPARED WITH ECG OF 21-MAY-2017 20:31, VENT. RATE HAS INCREASED BY 49 BPM Confirmed by DANILO GIBSON MD ([id number]) on 09/17/2017 12:52:44 PM Referred By: Confirmed By:DANILO GIBSON MD
--- NOTE | 2017-09-17 12:54 | PN ---
Progress Note (short form) - Note Progress Note: PULMONARY Denies shortness of breath, cough or fevers. Family at bedside. Last Vital Signs Temp Pulse Resp BP Pulse Ox 98.7 F 56 L 20 144/80 96 09/17/17 08:26 09/17/17 08:26 09/17/17 08:26 09/17/17 08:26 09/16/17 20:21 Gen: NAD at rest Heart: RRR Lung: decreased breath sounds at the bases Abd: soft, nontender Ext: no edema CBC, BMP 09/17/17 07:30 09/17/17 07:30 Active Medications Acetaminophen (Tylenol -) 650 mg PO Q6H PRN PRN Reason: PAIN OR FEVER Last Admin: 09/15/17 18:58 Dose: 650 mg Albuterol/Ipratropium (Duoneb -) 1 amp NEB RQID [facility] Last Admin: 09/17/17 11:05 Dose: Not Given Heparin Sodium (Porcine) (Heparin -) 5,000 unit SQ BID [facility] Last Admin: 09/17/17 10:04 Dose: 5,000 unit Azithromycin 500 mg/ Dextrose 250 mls @ 250 mls/hr IVPB DAILY [facility] Last Admin: 09/17/17 11:32 Dose: 250 mls/hr Ceftriaxone Sodium 1 gm/ (Dextrose) 50 mls @ 100 mls/hr IVPB DAILY [facility] Last Admin: 09/17/17 10:03 Dose: 100 mls/hr Memantine (Namenda -) 10 mg PO BID [facility] Last Admin: 09/17/17 10:04 Dose: 10 mg Risperidone (Risperdal -) 1 mg PO BID [facility] Last Admin: 09/17/17 10:04 Dose: 1 mg A/P Pneumonia Sepsis HTN Parkinsons Dementia - continue antibiotics - inhaled bronchodilators as needed - DVT prophylaxis
--- NOTE | 2017-09-17 13:25 | PN ---
Progress Note (short form) - Note Progress Note: doing well just returned from chest ct eating lunch Vital Signs Period Temp Pulse Resp BP Sys/Sharp Pulse Ox Last 24 Hr 98.6 F-99.4 F 56-66 20-22 119-144/72-80 96 cor-rrr lungs decreased bs at bases abd soft,nt ext no edema CBC, BMP 09/17/17 07:30 09/17/17 07:30 Microbiology 09/15/17 01:05 Blood - Peripheral Venous Blood Culture - Preliminary NO GROWTH OBTAINED AFTER 48 HOURS, INCUBATION TO CONTINUE FOR 3 DAYS. 09/15/17 01:05 Blood - Peripheral Venous Blood Culture - Preliminary NO GROWTH OBTAINED AFTER 48 HOURS, INCUBATION TO CONTINUE FOR 3 DAYS. 09/15/17 05:45 Urine - Urine Clean Catch Urine Culture - Final NO GROWTH OBTAINED 09/15/17 15:15 Urine For Antigen Detection Legionella Antigen - Preliminary 09/15/17 15:15 Urine For Antigen Detection Streptococcus pneumoniae Antigen (M - Final 09/15/17 01:25 Nasopharyngeal Swab Influenza Types A,B Antigen (FAUSTINO) - Final 09/15/17 01:25 Nasopharyngeal Swab - Final imp/reccd CAP- LLL infiltrate- f/u chest ct, ?viral with leukopenia influenza screen negative cultures sent continue rocephin/zith day #3 ?discharge home in am on po ceftin Problem List - Problems (1) Pneumonia Code(s): J18.9 - PNEUMONIA, UNSPECIFIED ORGANISM
--- NOTE | 2017-09-17 13:45 | DS ---
Physical Examination Vital Signs: Vital Signs Temperature 98.7 F 09/17/17 08:26 Pulse Rate 56 L 09/17/17 08:26 Respiratory Rate 20 09/17/17 08:26 Blood Pressure 144/80 09/17/17 08:26 O2 Sat by Pulse Oximetry (%) 96 09/16/17 20:21 Constitutional: Yes: Calm Neck: Yes: Trachea Midline Cardiovascular: Yes: Regular Rate and Rhythm, S1, S2 Respiratory: Yes: CTA Bilaterally Gastrointestinal: Yes: Normal Bowel Sounds, Soft Edema: No Neurological: Yes: Alert, Oriented Labs: CBC, BMP 09/17/17 07:30 09/17/17 07:30 Discharge Summary Reason For Visit: SEPSIS,PNEUMONIA Current Active Problems DVT prophylaxis (Acute) Dementia (Acute) Elevated d-dimer (Acute) Pneumonia (Acute) Sepsis (Acute) Hospital Course: CHIEF COMPLAINT: Fever, Chills PCP: Dr. Marcella Hanna HISTORY OF PRESENT ILLNESS: This is a 72 y/o man with a PMH of Dementia, Parkinson's, Hypertension, Anxiety. Who presents to the ED with fever, chills, rigors x 4pm yesterday. Patient has Dementia, unable to obtain HPI. Patient's daughter was at bedside, vehicle monitor technician used. The daughter reports the patient was shaking uncontrollably and he felt hot. The patient denies cough, dizziness, MAYS, SOB, CP, N/V/D, constipation, dysuria. ER course was notable for: (1) Sepsis criteria met: T 103, P 118, R 22 (2) Chest Xray image: KATIE Pneumonia (3) Recent Travel: None hospital course: iv rocephin,zithromax WBC low 3.1 switch to ceftin chest CT mild left lower lobe opacity Condition: Improved - Instructions Diet, Activity, Other Instructions: ceftin 500mg po bid for 5 days Referrals: Marcella Hanna [Primary Care Provider] - Disposition: HOME - Home Medications Comprehensive Discharge Medication List: Ambulatory Orders Memantine HCl [Namenda -] 10 mg PO BID #60 tablet 05/22/17 Risperidone [Risperdal -] 1 mg PO BID #60 tablet 05/22/17
[2017-09-17] MEDS: CEFUROXIME AXETIL 500 MG TABLET PO SCH ×2 (14:30→21:17)
[2017-09-18] MEDS: ALBUTEROL SO4 2.5/IPRATROPIUM 0.5 INH SOL 3 ML VIAL.NEB. NEB SCH ×2 (07:20→11:57)
[2017-09-18] MEDS: CEFUROXIME AXETIL 500 MG TABLET PO SCH (10:25)
[2017-09-18] MEDS: MEMANTINE HCL 10 MG TABLET (FP) PO SCH (10:25)
[2017-09-18] MEDS: HEPARIN NA (PORCINE) 5,000 UNITS/ML 1ML VIAL SQ SCH (10:25)
[2017-09-18] MEDS: risperiDONE 1 MG TABLET (FP) PO SCH (10:25)
--- NOTE | 2017-09-18 10:52 | PN ---
Progress Note, Physician Chief Complaint: patient seen and examined ready to go home today - Current Medication List Current Medications: Active Medications Acetaminophen (Tylenol -) 650 mg PO Q6H PRN PRN Reason: PAIN OR FEVER Last Admin: 09/15/17 18:58 Dose: 650 mg Albuterol/Ipratropium (Duoneb -) 1 amp NEB RQID [facility] Last Admin: 09/18/17 07:20 Dose: 1 amp Cefuroxime Axetil (Ceftin -) 500 mg PO BID [facility] Last Admin: 09/18/17 10:25 Dose: 500 mg Heparin Sodium (Porcine) (Heparin -) 5,000 unit SQ BID [facility] Last Admin: 09/18/17 10:25 Dose: 5,000 unit Memantine (Namenda -) 10 mg PO BID [facility] Last Admin: 09/18/17 10:25 Dose: 10 mg Risperidone (Risperdal -) 1 mg PO BID [facility] Last Admin: 09/18/17 10:25 Dose: 1 mg - Objective Vital Signs: Vital Signs Temperature 98.3 F 09/18/17 05:30 Pulse Rate 64 09/18/17 05:30 Respiratory Rate 18 09/18/17 05:30 Blood Pressure 120/67 09/18/17 05:30 O2 Sat by Pulse Oximetry (%) 96 09/16/17 20:21 Constitutional: Yes: Calm Neck: Yes: Trachea Midline Cardiovascular: Yes: Regular Rate and Rhythm, S1, S2 Respiratory: Yes: CTA Bilaterally Gastrointestinal: Yes: Normal Bowel Sounds, Soft Edema: No Neurological: Yes: Alert, Oriented Labs: CBC, BMP 09/17/17 07:30 09/17/17 07:30 Problem List - Problems (1) Dementia Assessment/Plan: namenda Code(s): F03.90 - UNSPECIFIED DEMENTIA WITHOUT BEHAVIORAL DISTURBANCE (2) Pneumonia Assessment/Plan: ceftin for 5 days neublizer Code(s): J18.9 - PNEUMONIA, UNSPECIFIED ORGANISM Assessment/Plan dc home today
--- NOTE | 2017-09-18 11:55 | PN ---
Progress Note (short form) - Note Progress Note: PULMONARY Feels well. Denies shortness of breath, cough or fevers. Last Vital Signs Temp Pulse Resp BP Pulse Ox 98.6 F 66 20 129/76 96 09/18/17 08:00 09/18/17 08:00 09/18/17 08:00 09/18/17 08:00 09/18/17 08:00 Gen: NAD at rest Heart: RRR Lung: decreased breath sounds at the bases Abd: soft, nontender Ext: no edema CBC, BMP 09/17/17 07:30 09/17/17 07:30 Active Medications Acetaminophen (Tylenol -) 650 mg PO Q6H PRN PRN Reason: PAIN OR FEVER Last Admin: 09/15/17 18:58 Dose: 650 mg Albuterol/Ipratropium (Duoneb -) 1 amp NEB RQID [facility] Last Admin: 09/18/17 07:20 Dose: 1 amp Cefuroxime Axetil (Ceftin -) 500 mg PO BID [facility] Last Admin: 09/18/17 10:25 Dose: 500 mg Heparin Sodium (Porcine) (Heparin -) 5,000 unit SQ BID [facility] Last Admin: 09/18/17 10:25 Dose: 5,000 unit Memantine (Namenda -) 10 mg PO BID [facility] Last Admin: 09/18/17 10:25 Dose: 10 mg Risperidone (Risperdal -) 1 mg PO BID [facility] Last Admin: 09/18/17 10:25 Dose: 1 mg A/P Pneumonia Sepsis HTN Parkinsons Dementia - complete antibiotic course - inhaled bronchodilators as needed - DVT prophylaxis - d/c planning
[2017-09-18 14:03] VITALS: BP 140/98; PULSE 78; TEMP 97.9
== END 2017-09-18 15:21 | disposition home or self-care (01) | DRG 720 ==
LOC: JER 23:41 → JERBED 09-15 04:07 → J6S 09-15 07:41 → OBSVTOIN 09-16 10:52
PROVIDERS: ADMIT Internal Medicine; ATTEND Family Medicine
DX: A41.9 Sepsis, unspecified organism (principal); F41.9 Anxiety disorder, unspecified; I10 Essential (primary) hypertension; G20 Parkinson's disease; F02.80 Dementia in other diseases classified elsewhere, unspecified severity, without behavioral disturbance, psychotic disturbance, mood disturbance, and anxiety; R79.89 Other specified abnormal findings of blood chemistry; J18.9 Pneumonia, unspecified organism; R00.0 Tachycardia, unspecified; D72.819 Decreased white blood cell count, unspecified; J98.11 Atelectasis
CPT/HCPCS: 36415; 71045-TC-FY; 71250-TC; 80048; 80053; 81003; 82550; 83605; 84484; 85025; 85379; 87040; 87086; 87804; 87899; 93005; 93010; 94640; 99283-25; G0378; J0131; J1644; J2794; J7030